=== PATIENT | female | born 1955 | race Caucasian/White ===

== ENCOUNTER → 2017-03-08 10:17 | Outpatient (CLI) | payer MEDICARE ==
[2009-09-23 12:39] VITALS: BMI 34.9
== END | disposition home or self-care (01) ==
LOC: D.US 10:00
DX: R22.31 Localized swelling, mass and lump, right upper limb (principal)

== ENCOUNTER → 2018-08-15 09:11 | Outpatient (CLI) | payer MEDICARE ==
[2009-09-23 12:39] VITALS: BMI 34.9
== END | disposition home or self-care (01) ==
LOC: D.RT 09:00
DX: J44.9 Chronic obstructive pulmonary disease, unspecified (principal)

== ENCOUNTER → 2019-02-20 14:49 | Outpatient (CLI) | payer MEDICARE, MEDICAID ==
[2009-09-23 12:39] VITALS: BMI 34.9
== END | disposition home or self-care (01) ==
LOC: D.MRI 14:30
PROVIDERS: ATTEND Orthopaedic Surgery
DX: M25.571 Pain in right ankle and joints of right foot (principal); M25.572 Pain in left ankle and joints of left foot

== ENCOUNTER → 2019-04-24 14:25 | Outpatient (CLI) | payer MEDICARE ==
[2009-09-23 12:39] VITALS: BMI 34.9
== END | disposition home or self-care (01) ==
LOC: D.LAB 14:25
PROVIDERS: ATTEND Internal Medicine Pulmonary Disease
DX: J44.9 Chronic obstructive pulmonary disease, unspecified (principal)